=== PATIENT | female | born 1995 | race Caucasian/White ===

== ENCOUNTER 2021-01-25 01:42 | Emergency (ER) | payer SELFPAY ==
[2021-01-25 01:42] VITALS: BP 154/94; PULSE 152; RESP 22; TEMP 36.9; O2SAT 96; BMI 29.2
[2021-01-25 01:55] LABS: Basophils # 0.2 K/mm3 (0-0.2); Basophils % 1.9 % (0.1-2.0); Eosinophils # 0.1 K/mm3 (0.0-0.4); Hematocrit 48.8 % (37.0-47.0); Hemoglobin 16.4 g/dL (12.2-16.2); Lymphocytes # 3.8 K/mm3 (0.7-4.5); Lymphocytes % 34.5 % (10-50); Mean Corpuscular HGB Conc 33.7 g/dL (31.8-35.4); Mean Corpuscular Hemoglobin 31.9 pg (27.0-31.2); Mean Corpuscular Volume 94.6 fl (81-99); Mean Platelet Volume 7.2 fl (7.4-10.4); Monocytes # 0.8 K/mm3 (0.1-1.0); Monocytes % 7.1 % (1.7-9.3); Neutrophils # 6.2 K/mm3 (1.8-7.8); Neutrophils % 55.6 % (37.0-80.0); Platelet Count 409 K/mm3 (142-424); Red Blood Count 5.16 M/mm3 (4.20-5.40); Red Cell Distribution Width 13.3 % (11.5-17.5); White Blood Count 11.1 K/mm3 (4.8-10.8)
[2021-01-25 02:01] LABS: HCG Qualitative, Serum Negative (Negative)
[2021-01-25 02:04] LABS: Alanine Aminotransferase 34 U/L (12-78); Albumin/Globulin Ratio 1.5 (1.1-1.8); Alkaline Phosphatase 101 U/L (38-126); Anion Gap 18.9 mEq/L (5-15); Aspartate Amino Transferase 72 U/L (14-36); Bilirubin,Total 0.9 mg/dl (0.2-1.3); Blood Urea Nitrogen 10 mg/dl (7-17); Calcium 9.8 mg/dl (8.4-10.2); Carbon Dioxide 22 mmol/L (22.0-30.0); Chloride 101 mmol/L (98-107); Creatinine Clearance Estimated 118 mL/min (50-200); Estimated Glomerular Filt Rate 78 ml/min (>60); Ethyl Alcohol 276 mg/dl (0-10); GFR (African American) 94 ML/MIN (>60); Globulin 3.4 g/dL (1.3-3.2); Glucose 96 mg/dl (74-100); Lipase 54 U/L (23-300); Potassium 3.9 mmoL/L (3.5-5.1); Sodium 138 mmol/L (136-145); Total Protein,Serum 8.4 g/dl (6.3-8.2)
[2021-01-25 02:09] LABS: C-Reactive Protein 0.9 mg/L (0-4)
[2021-01-25 02:13] LABS: Lactic Acid 3.6 mmol/L (0.7-2.1)
[2021-01-25 02:19] LABS: Erythrocyte Sedimentation Rate 4 mm/hr (0-20)
[2021-01-25 02:23] LABS: Procalcitonin 0.036 ng/mL (0.0-2.0)
--- NOTE | 2021-01-25 02:40 | [facility].EDNVD ---
ED Disposition Clinical Impression: Gastritis Qualifiers: Gastritis type: unspecified gastritis Chronicity: acute Gastritis bleeding: presence of bleeding unspecified Qualified Code(s): K29.00 - Acute gastritis without bleeding Alcohol intoxication Qualifiers: Complication of substance-induced condition: with unspecified complication Qualified Code(s): F10.929 - Alcohol use, unspecified with intoxication, unspecified Disposition: Left Against Medical Advice Condition on Discharge: Fair Instructions: DI for Alcohol Use Disorder Additional Instructions: see pcp for follow up - Critical Care Critical Care Time: No Attestation: On , the high probability of a clinically significant, sudden or life threatening deterioration of the following system(s) required my full and direct attention, intervention and personal management. The time I documented below is in addition to time spent performing reported procedures but includes the following listed in this critical care notation. Medical Decision Making - Medical Records Medical records reviewed: Yes: I reviewed the patient's medical records. - [place] Inquiry Pt receiving controlled substance: No Vital Signs: 01/25/21 01:42 01/25/21 02:45 Temperature 98.5 F Temperature Source Oral Pulse Rate 101 H Pulse Rate [Right Radial] 152 H Respiratory Rate 22 Blood Pressure 107/48 L Blood Pressure [Right Arm] 154/94 H Blood Pressure Mean [Right Arm] 114 Blood Pressure Source [Right Arm] Automatic Cuff Blood Pressure Position [Right Arm] Sitting 02 Sat by Pulse Oximetry 96 97 Oxygen Delivery Method Room Air Room Air - Lab Data Lab results reviewed: Yes: I reviewed the patient's lab results. Lab Results 01/25/21 01:45: WBC 11.1 H, RBC 5.16, Hgb 16.4 H, Hct 48.8 H, MCV 94.6, MCH 31.9 H, MCHC 33.7, RDW 13.3, Plt Count 409, MPV 7.2 L, Neut % (Auto) 55.6, Lymph % (Auto) 34.5, [place] % (Auto) 7.1, Eos % (Auto) 1.0, Baso % (Auto) 1.9, Neut # (Auto) 6.2, Lymph # (Auto) 3.8, [place] # (Auto) 0.8, Eos # (Auto) 0.1, Baso # (Auto) 0.2 01/25/21 01:45: Sodium 138, Potassium 3.9, Chloride 101, Carbon Dioxide 22, Anion Gap 18.9 H, BUN 10, Creatinine 0.90, Estimated Creat Clear 118, Estimated GFR 78, Est GFR ( Amer) 94, Glucose 96, Calcium 9.8, Total Bilirubin 0.9, AST 72 H, ALT 34, Alkaline Phosphatase 101, C-Reactive Protein 0.9, Total Protein 8.4 H, Albumin 5.0, Globulin 3.4 H, Albumin/Globulin Ratio 1.5, Lipase 54 01/25/21 01:45: Serum HCG, Qual Negative 01/25/21 01:45: Plasma/Serum Alcohol 276 H 01/25/21 01:45: ESR 4 01/25/21 01:45: Procalcitonin 0.036 01/25/21 01:57: Lactate 3.6 H Result diagrams: 01/25/21 01:45 01/25/21 01:45 Orders (Tests/Meds): ED MEDICATIONS Generic Name Dose Route Start Last Admin Trade Name Freq PRN Reason Stop Dose Admin Sodium Chloride 1,000 mls @ 999 mls/hr 01/25/21 02:00 01/25/21 01:57 Sod Chlor 0.9% 1000ml Bag IV 01/25/21 03:00 999 mls/hr .Q1H1M JULES Administration Sodium Chloride 10 ml 01/25/21 02:42 Sodium Chloride 0.9% 10ml Vial IV 02/24/21 02:41 NEEDED PRN dilute protonix Discontinued Medications Generic Name Dose Route Start Last Admin Trade Name Freq PRN Reason Stop Dose Admin Pantoprazole Sodium 40 mg 01/25/21 02:42 01/25/21 02:51 Pantoprazole 40mg Vial IV 01/25/21 02:43 40 mg ONCE ONE Administration Promethazine HCl 25 mg 01/25/21 01:48 01/25/21 01:57 Promethazine Hcl 25mg/Ml 1ml Vial IV 01/25/21 01:49 25 mg ONCE ONE Administration Sodium Chloride 25 ml 01/25/21 01:48 01/25/21 01:57 Sodium Chloride 0.9% 25ml Bag IV 01/25/21 01:49 25 ml ONCE ONE Administration ORDERS Category Date Time Status Drug Screen,Urine Stat Lab 01/25/21 02:57 Ordered Rapid PCR Covid and Flu A/B Stat Lab 12/20/21 02:58 Ordered UA [Urinalysis and Microscopic] Stat Lab 01/25/21 02:57 Ordered Urine , HCG Qual. Stat Lab 01/25/21 02:57 Ordered Medical Deci
[2021-01-25 02:45] VITALS: BP 107/48; PULSE 101; O2SAT 97
[2021-01-25 03:09] VITALS: BP 107/40; PULSE 82; RESP 16; TEMP 36.9; O2SAT 97
[2021-01-25 03:09] LABS: Coronavirus 19, PCR Not Detected (NotDetected); Influenza A, PCR Not Detected (NotDetected); Influenza B, PCR Not Detected (NotDetected)
== END 2021-01-25 03:25 | disposition left against medical advice (07) ==
PROVIDERS: Emergency Provider Emergency Medicine
DX: K29.00 Acute gastritis without bleeding (principal); F10.929 Alcohol use, unspecified with intoxication, unspecified; Z20.822 Contact with and (suspected) exposure to COVID-19
CPT/HCPCS: 80053; 83605; 83690; 84145; 84703; 85025; 85651; 86140; 99283; C9803; U0003; U0005